=== PATIENT | female | born 1995 | race African-American/Black ===

== ENCOUNTER 2023-04-09 13:03 | Emergency (ER) | payer OTHER ==
[~2023-04-09] VITALS: Ht 157.5 cm; Wt 63.5 kg
[2023-04-09 13:12] VITALS: BP 110/70; TEMP 98.2; O2SAT 100
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
[2023-04-09] MEDS ORDERED: ACETAMINOPHEN ES 500 MG TABLET PO ONE (13:30)
[2023-04-09] MEDS ORDERED: IBUPROFEN 400 MG TABLET PO ONE (13:30)
[2023-04-09] MEDS ORDERED: IBUPROFEN 400 MG TABLET ONE (13:37)
[2023-04-09] MEDS ORDERED: ACETAMINOPHEN ES 500 MG TABLET ONE (13:39)
[2023-04-09] MEDS ORDERED: TYL2T PO (15:26)
== END 2023-04-09 15:36 ==
LOC: ER 13:07
DX: M25.532 Pain in left wrist (principal); Z79.899 Other long term (current) drug therapy
CPT/HCPCS: 73070-TC; 73090-TC; 73110